=== PATIENT | male | born 2000 ===

== ENCOUNTER 2023-04-27 17:37 | Emergency (ER) | payer SELFPAY ==
[~2023-04-27] VITALS: Ht 177.8 cm; Wt 86.4 kg
[2023-04-27 17:49] VITALS: TEMP 98.2
[2023-04-27 18:32] LABS: BASO # 0.1 K/mm3 (0.0-0.2); BASO % 0.8 % (0.0-2.0); EOS # 0.4 K/mm3 (0.0-0.7); EOS % 5.9 % (0.0-4.0); GRAN # 2.2 K/mm3 (1.4-6.5); GRAN % 36.3 % (42.2-75.2); HEMATOCRIT 48.1 % (42.0-52.0); HEMOGLOBIN 16.1 g/dl (13.5-18.0); LYMPH # 2.9 K/mm3 (1.2-3.4); LYMPH % 46.5 % (20.0-51.0); MEAN CELL VOLUME 90 fl (80.0-100.0); MEAN CORPUSCULAR HEMOGLOBIN 30 pg (27-31); MEAN CORPUSCULAR HGB CONC 34 g/dl (33.0-37.0); MEAN PLATELET VOLUME 11.2 fl (7.4-10.4); MONO # 0.6 K/mm3 (0.1-0.6); MONO % 10.3 % (1.7-9.3); PLATELET COUNT 188 K/mm3 (130-400); RED BLOOD COUNT 5.36 M/mm3 (4.20-5.60); REDCELL DISTRIBUTION WIDTH-CV 12.3 % (11.5-14.5)
[2023-04-27 18:45] LABS: ALANINE AMINOTRANSFERASE 26 U/L (0-55); ALBUMIN 4.4 gm/dL (3.5-5.0); ALKALINE PHOSPHATASE 58 U/L (40-150); ANION GAP 8 mmol/L (7-16); AST,SGOT 28 U/L (5-34); BLOOD UREA NITROGEN 19 mg/dL (9-21); CALCIUM 10.4 mg/dL (8.4-10.2); CARBON DIOXIDE 28 mmol/L (22-29); CHLORIDE 104 mmol/L (98-107); CREATININE, serum 1.04 mg/dL (0.72-1.25); GLUCOSE 67 mg/dL (70-99); SODIUM 140 mmol/L (136-145); TOTAL PROTEIN 7.8 gm/dL (6.2-8.1)
[2023-04-27 19:09] LABS: THYROID STIMULATING HORMONE 1.398 uIU/mL (0.350-4.940)
[2023-04-27 19:10] LABS: BILIRUBIN,TOTAL 0.4 mg/dL (0.2-1.2)
[2023-04-27 19:13] LABS: TROPONIN-I < 0.010 ng/mL (0.00-0.033)
[2023-04-27 19:23] VITALS: BP 128/86; PULSE 96
[2023-04-27 20:15] LABS: TRICYCLIC ANTIDEPRESS URINE NEGATIVE (NEGATIVE)
== END 2023-04-27 19:34 | disposition home or self-care (01) ==
LOC: COL.ER 17:37
PROVIDERS: Nurse Practitioner
DX: R00.0 Tachycardia, unspecified (principal); R00.2 Palpitations